=== PATIENT | female | born 1980 | race Caucasian/White ===

== ENCOUNTER → 2018-05-30 | Outpatient (CLI) | payer OTHER ==
[2018-05-30] VITALS (18 sets, daily range): BP systolic 111–142; BP diastolic 75–92
[~2018-05-30] MED LIST: AMITRIPTYLINE H25 M2 PO; AUGMENTIN 875875 M1 PO; BACLOFEN 10MG T10 MG PO; BUSPIRONE HCL10 MG PO; BUTALB-APAP-CA1 EACH PO; CYMBALTA60 MG PO; EFFEXOR XR150 MG PO; HORIZANT600 MG PO; HYDROCODONE-AP1 EAC6 PO; IBUPROFEN 600600 M1 PO; LEVAQUIN 500 M500 M2 PO; LYRICA 50 MG50 MG; MEDROLDOSEPACK PO; Magic Mouthwash PO; NORCO 10-325 T1 EACH PO; ONDANSETRON HCL4 M2 PO; OXYMORPHONE HC7.5 MG PO; PRAVACHOL20 MG PO; PROTONIX40 M1 PO; PROZAC20 MG PO; ROBAXIN 750 MG750 M1 PO; TOPAMAX 100 MG100 MG PO; TOPAMAX50 MG PO; TREXIMET 85-501 EACH PO; VENLAFAXIN75 MG/1 T2 PO; ZANAFLEX4 MG PO; ZOFRAN4 MG PO; ZOLOFT25 MG PO; [UNRECOGNIZED DRUG - OTHER] MC
--- NOTE | 2018-05-31 13:13 | TST ---
[place] [address] TREADMILL STRESS TEST Name: DANNI NOLAN Room: [facility]#: [id number] Admission: 05/30/18 Attend Phys: Aubrey Valentin MD Discharge: Date of : 78 Date of Service: 05/30/18 1235 Report #: [id number] THIS REPORT FOR: //name// CC: Aubrey Valentin MD DATE OF SERVICE: 05/30/2018 Tilt table test was performed on the patient with tilting and subsequent administration of nitrates. Resting blood pressure is 123/75 with a heart rate of 79. The patient was tilted without significant change in systemic pressure, heart rate or symptomatic status. She was subsequently given nitroglycerin sublingually. While the patient was in the tilted position, blood pressure did not change significantly with the lowest value noted being 115/82. There was no inappropriate decrease in heart rate, no inappropriate decrease in blood pressure as noted above, and no symptoms of lightheadedness, dizziness, or syncope. At the end of the test, blood pressure was 118/81 with a pulse rate of 98. IMPRESSION: 1. Negative tilt table test for provocation of hypotension, inappropriate bradycardia, lightheadedness, dizziness, or syncope. 2. After nitrate provocation, there was no significant change in blood pressure, heart rate or symptomatic status. <ELECTRONICALLY SIGNED> By: Luis Stahl MD, FACC 05/31/18 1313 1235 0412 Luis Stahl MD, [facility] /nt
== END | disposition home or self-care (01) ==
LOC: M.CL 10:30
DX: R55 Syncope and collapse (principal); G43.909 Migraine, unspecified, not intractable, without status migrainosus; M25.50 Pain in unspecified joint; Z88.8 Allergy status to other drugs, medicaments and biological substances; Z79.899 Other long term (current) drug therapy; Z79.891 Long term (current) use of opiate analgesic

== ENCOUNTER 2018-06-12 18:25 | Observation (INO) | payer OTHER ==
[~2018-06-12] VITALS: Ht 172.7 cm; Wt 89.8 kg
[~2018-06-12 18:25] MED LIST changes: -PROZAC20 MG PO
[2018-06-12 18:29] VITALS: BP 179/111
[2018-06-12 19:18] LABS: ABSOLUTE BASOPHILS 0.1 thou/uL (0.0-0.2); ABSOLUTE EOSINOPHILS 0.3 thou/uL (0.0-0.7); ABSOLUTE LYMPHOCYTES 4.4 thou/uL (0.8-5.3); ABSOLUTE MONOCYTES 1.1 thou/uL (0.0-1.2); ABSOLUTE NEUTROPHILS 7.4 thou/uL (1.6-8.1); BASOPHILS 0.6 %; EOSINOPHILS 2.2 %; HEMATOCRIT 39.7 % (37.0-47.0); LYMPHOCYTES 33.1 %; MCH 27.8 pg (26.0-34.0); MCHC 32.9 g/dL (28.0-37.0); MCV 84.5 fL (80.0-100.0); MONOCYTES 8.5 %; MPV 6.8 fl. (7.2-11.1); NUCLEATED RBCS 0 /100WBC; PLATELET COUNT* 439 thou/uL (150-400); POLYS 55.6 %; RDW-CV 14.5 % (10.5-14.5); WBC 13.3 thou/uL (4.0-11.0)
[2018-06-12 19:21] LABS: ANION GAP 10 mmol/L (7-16); BUN 9 mg/dL (7-18); CALCIUM 9.6 mg/dL (8.5-10.1); CHLORIDE 104 mmol/L (98-107); CO2 22 mmol/L (21-32); CREATININE 0.8 mg/dL (0.6-1.3); GLUCOSE 103 mg/dL (70-99); POTASSIUM 3.4 mmol/L (3.5-5.1); SODIUM 136 mmol/L (136-145)
[2018-06-12 19:28] LABS: ALBUMIN 4.2 g/dL (3.4-5.0); ALKALINE PHOSPHATASE 68 U/L (46-116); LIPASE 209 U/L (73-393); SGOT 17 U/L (15-37); SGPT 30 U/L (30-65); TOTAL BILIRUBIN 0.3 mg/dL (<0.1-1.0); TOTAL PROTEIN 8.6 g/dL (6.4-8.2)
[2018-06-12 19:43] LABS: TROPONIN-I LEVEL <0.06 ng/mL (<0.06)
[2018-06-12 20:40] LABS: URINE BILIRUBIN NEGATIVE (Negative); URINE BLOOD NEGATIVE (Negative); URINE CLARITY CLEAR; URINE COLOR YELLOW; URINE GLUCOSE-RANDOM NEGATIVE (Negative); URINE KETONES NEGATIVE (Negative); URINE LEUKOCYTES NEGATIVE (Negative); URINE NITRITE NEGATIVE (Negative); URINE PROTEIN NEGATIVE (Negative); URINE SPECIFIC GRAVITY 1.015 (1.005-1.030); URINE UROBILINOGEN 0.2 E.U./dl (0.2-1.0)
[2018-06-12 20:49] LABS: AMP/METHAMP Negative (Negative); BARBITURATES Negative (Negative); BENZODIAZEPINES Negative (Negative); COCAINE Negative (Negative); METHADONE Negative (Negative); OPIATES Negative (Negative); PCP Negative (Negative); THC Negative (Negative)
[2018-06-12 22:14] VITALS: BP 122/83
[2018-06-12] MEDS ORDERED: PROZAC20 MG PO (22:36)
[2018-06-12 22:39] VITALS: BP 99/62
[2018-06-13] VITALS: BP 107/63
[2018-06-13 04:00] VITALS: BP 127/84
--- NOTE | 2018-06-13 05:23 | NUR ---
ASSUMED PT CRAE AT 2230, PT IS A&OX4, TRACING NSR/ST ON THE MONITOR, ON RA. PT STATES SHE FEELS WEAK AND DIZZY AND IS HAVING TROUBLE WALKING. PT IS NPO MFOR PENDING CARDOLOGY CONSULT. PT STATES SHE THINKS HER B12 IS LOW. ADMISSION COMPLETED CHARTED. BED IN LOW POSITION, CALL LIGHT IN REACH, BED ALARM ON, YELLOW ARM BAND AND SOCKS IN PLACE. HOURLY ROUDING COMPLETED FOR PT SAFETY.
--- NOTE | 2018-06-13 05:28 | NUR ---
ASSUMED PT CARE AT 1930, PT IS A&OX4, PT IS TRACING NSR ON THE MONITOR, ON 2L NC SATTING MID TO HIGH 90'S. PT C/O PAION, PRN PAIN MEDICATIONS GIVEN PER MAR BED IN LOW POSITION, CALL LIGHT IN REACH, BED ALARM ON, YELLOW ARM BAND AND SOCKS IN PLACE, HOURLY ROUNDING COMPLETED FOR PT SAFETY.
[2018-06-13 08:10] VITALS: BP 136/92
--- NOTE | 2018-06-13 11:49 | NUR ---
Pt was out of room when CM went to assess, will f/u later
[2018-06-13 14:00] VITALS: BP 144/86
--- NOTE | 2018-06-13 15:40 | 2DMMODE ---
[place] [address] 2 D/M-MODE ECHOCARDIOGRAM Name: DANNI NOLAN Room: [address] Anand#: [id number] Admission: 06/12/18 Attend Phys: Anny Soto, Discharge: Date of : 78 Date of Service: 06/13/18 1539 Report #: [id number] THIS REPORT FOR: //name// APPROVED REPORT Study performed: 06/13/2018 14:00:09 EXAM: Comprehensive 2D, Doppler, and color-flow Echocardiogram Patient Location: In-Patient Room #: Formerly named [facility] Status: routine BSA: 2.03 HR: 76 bpm BP: 136/92 mmHg Rhythm: NSR Other Information Study Quality: Good Indications Chest Pain 2D Dimensions IVSd: 11.47 (7-11mm) LVOT Diam: 24.04 (18-24mm) LVDd: 44.68 mm PWd: 10.44 (7-11mm) Ascending Ao: 27.41 (22-36mm) LVDs: 30.83 (25-40mm) Aortic Root: 29.15 mm Volumes Left Atrial Volume (Systole) LA ESV Index: 25.70 mL/m2 Aortic Valve AoV Peak Sotero.: 1.31 m/s AO Peak Gr.: 6.84 mmHg LVOT Max P.96 mmHg AO Mean Gr.: 3.80 mmHg LVOT Mean P.60 mmHg LVOT Max V: 0.99 m/s AO V2 VTI: 25.86 cm LVOT Mean V: 0.57 m/s DEE (VTI): 3.21 cm2 LVOT V1 VTI: 18.30 cm Mitral Valve E/A Ratio: 1.21 MV Decel. Time: 203.05 ms MV E Max Sotero.: 0.77 m/[place] [address] 2 D/M-MODE ECHOCARDIOGRAM Name: DANNI NOLAN [address] [id number] Admission: 06/12/18 Attend Phys: Anny Soto, Discharge: Date of : 78 Date of Service: 06/13/18 1539 Report #: [id number] MV PHT: 58.88 ms MVA (PHT): 3.74 cm2 TDI E/Lateral E': 6.42 E/Medial E': 7.00 Medial E' Sotero.: 0.11 m/s Lateral E' Sotero.: 0.12 m/s Pulmonary Valve PV Peak Sotero.: 0.94 m/s PV Peak Gr.: 3.50 mmHg Left Ventricle The left ventricle is normal size. There is normal LV segmental wall motion. There is normal left ventricular wall thickness. Left ventricular systolic function is normal. LVEF is 60-65%. The left ventricular diastolic function is normal. Right Ventricle The right ventricle is normal size. The right ventricular systolic function is normal. Atria The left atrium size is normal. The right atrium size is normal. Aortic Valve The aortic valve is normal in structure. No aortic regurgitation is present. There is no aortic valvular stenosis. Mitral Valve The mitral valve is normal in structure. Trace mitral regurgitation. No evidence of mitral valve stenosis. Tricuspid Valve The tricuspid valve is normal in structure. Trace tricuspid regurgitation. Pulmonic Valve The pulmonary valve is normal in structure. Trace pulmonic regurgitation. Great Vessels The aortic root is normal in size. IVC is normal in size and collapses >50% with inspiration[place] [address] 2 D/M-MODE ECHOCARDIOGRAM Name: DANNI NOLAN [address]#: [id number] Admission: 06/12/18 Attend Phys: Anny Soto, Discharge: Date of : 78 Date of Service: 06/13/18 1539 Report #: [id number] There is no pericardial effusion. <Conclusion> The left ventricle is normal size. There is normal left ventricular wall thickness. Left ventricular systolic function is normal. LVEF is 60-65%. The left ventricular diastolic function is normal. Trace mitral regurgitation. Trace tricuspid regurgitation. IVC is normal in size and collapses >50% with inspiration. <ELECTRONICALLY SIGNED> By: Fernandez Rivera MD, FACC 06/13/18 1539 153 153 Fernandez Rivera MD, FACC /INF
--- NOTE | 2018-06-13 15:56 | CARDNUC ---
[place] [address] CARDIAC NUCLEAR IMAGING REPORT Name: DANNI NOLAN [address] [id number] Admission: 06/12/18 Attend Phys: Anny Soto, Discharge: Date of : 78 Date of Service: 06/13/18 1556 Report #: [id number] THIS REPORT FOR: //name// APPROVED REPORT Study performed: 06/13/2018 08:54:00 Indication: Chest pain, dizzy Patient Location: In-Patient Room #: 206 Stress Tech: Anika Aldana Stress Nurse: Johanny Harvey RN Ht: 5 ft 8 in Wt: 197 lbs BSA: 2.03 m2 BMI: 29.95 Medical History Medical History: hyperlipidemia Medications: aspirin 325 Allergies: tramadol, theophylline Cardiac Risk Factors: hyperlipidemia Previous Cardiac Procedures: none Exercise History: Physically active Resting Data Rest SPECT myocardial perfusion imaging was performed in supine position 30 minutes following the intravenous injection of 9.0 mCi of Tc-99m Sestamibi. Time of rest injection: 10:05 The images were gated to evaluate regional wall motion and calculate left ventricular ejection fraction. Administration Route: IV Administration Site: Right AC Pharmacologic Stress Pharmacologic stress test was performed by injecting Regadenoson 0.4 mg IV push over 10-15 seconds immediately followed by the intravenous injection of 31.8 mCi of Tc-99m Sestamibi. Time of stress injection: 11:35 Administration Route: IV Administration Site: Right AC Heart Rate at time of stress injection: 128 bpm. Gated Stress SPECT was performed 80 minutes after stress injection. The images were gated to evaluate regional [place] [address] CARDIAC NUCLEAR IMAGING REPORT Name: DANNI NOLAN Paul Room: [address]#: [id number] Admission: 06/12/18 Attend Phys: Anny Soto, Discharge: Date of : 78 Date of Service: 06/13/18 1556 Report #: [id number] left ventricular ejection fraction. Prone imaging was performed. Stress Test Details Stress Test: Pharmacologic stress testing performed using 0.4 mg of regadenoson per 5 mL given IV over 10 seconds. Reason for pharmacologic stress test: physical limitation. HR Max Heart Rate (APMHR): 181 bpm Resting HR: 102 bpm Target HR (85% APMHR): 153 bpm Max HR Achieved: 128 bpm % of APMHR: 70 Recovery HR: 105 bpm BP Resting BP: 127/90 mmHg Recovery BP: 145/84 mmHg ECG Resting ECG: Sinus Rhythm Stress ECG: Sinus Rhythm ST Change: None Arrhythmia: None Recovery ECG: Sinus Rhythm Recovery ST Change: None Recovery Arrhythmia: None Clinical Reason for Termination: Completed protocol Exercise duration: 0 min sec Exercise capacity: 1 METs The patient had no significant symptoms with Lexiscan infusion. Nurse Comments pt generalized weakness Stress ECG Conclusion The baseline 12-lead EKG shows sinus rhythm without significant ST or T wave abnormality. EKGs obtained during and post Lexiscan stress show sinus rhythm with no significant ST or T wave changes when compared to baseline. There were no stress-induced arrhythmias. Study Quality Study: [place] [address] CARDIAC NUCLEAR IMAGING REPORT Name: DANNI NOLAN [address] [id number] Admission: 06/12/18 Attend Phys: Anny Soto, Discharge: Date of : 78 Date of Service: 06/13/18 1556 Report #: [id number] Artifact: No artifact Study Data At rest, the left ventricular ejection fraction was 70%.. Post stress, the left ventricular ejection was 64%.. TID = 1.10. Perfusion Normal left ventricular perfusion. Wall Motion Normal left ventricular wall motion. Nuclear Conclusion ECG Findings: negative for ischemia Clinical Findings: negative for ischemia Nuclear Findings: negative for ischemia Exercise Capacity: not assessed Left Ventricular Function: normal Risk Study: low Myocardial perfusion images show no defect to suggest infarct or ischemia. Left ventricular systolic function is normal on gated studies. This is a low risk study. <Conclusion> The baseline 12-lead EKG shows sinus rhythm without significant ST or T wave abnormality. EKGs obtained during and post Lexiscan stress show sinus rhythm with no significant ST or T wave changes when compared to baseline. There were no stress-induced arrhythmias. <ELECTRONICALLY SIGNED> By: Fernandez Rivera MD, FACC 06/13/18 1556 1556 1556 Fernandez Rivera MD, FACC /INF
[2018-06-13 17:12] VITALS: BP 144/86
[2018-06-13 17:19] VITALS: BP 144/86
--- NOTE | 2018-06-13 18:03 | EKG ---
[place] [address] ELECTROCARDIOGRAM REPORT Name: DANNI NOLAN Room: [address]#: [id number] Admission: 06/12/18 Attend Phys: Anny Soto MD Discharge: 06/13/18 Date of : 78 Report #: [id number] THIS REPORT FOR: //name// [facility] ED Test Date: 2018-06-12 Test Time: 19:02:42 Pat Name: DANNI NOLAN Department: Room: [facility] Gender: F Appeals Writer: ANALIA : 1980 Requested By: Cathi Zambrano Order Number: [id number] MD: Herb Dejesus Measurements Intervals [place] Rate: 95 P: 63 MI: 139 QRS: 24 QRSD: 101 T: 30 QT: 358 QTc: 450 Interpretive Statements Sinus rhythm Baseline wander in lead(s) V2 No previous ECG available for comparison Electronically Signed On 06-13-2018 18:03:26 CDT by Herb Dejesus [email or web address] <ELECTRONICALLY SIGNED> By: Herb Dejesus MD, FAC 06/13/18 1803 01 01 Herb Dejesus MD, [facility] /EPI
== END 2018-06-13 17:47 | disposition home or self-care (01) ==
LOC: M.ERS 18:25 → M.TBA-ER 21:33 → M.2W 21:33
PROVIDERS: Nurse Practitioner Family; ADMIT Internal Medicine
DX: R07.89 Other chest pain (principal); G89.4 Chronic pain syndrome; I16.0 Hypertensive urgency; D51.0 Vitamin B12 deficiency anemia due to intrinsic factor deficiency; E78.5 Hyperlipidemia, unspecified; G43.909 Migraine, unspecified, not intractable, without status migrainosus; A69.20 Lyme disease, unspecified; Z87.39 Personal history of other diseases of the musculoskeletal system and connective tissue; Z90.49 Acquired absence of other specified parts of digestive tract; Z23 Encounter for immunization

== ENCOUNTER 2018-09-05 22:18 | Emergency (ER) | payer OTHER ==
[~2018-09-05] VITALS: Ht 172.7 cm; Wt 93.0 kg
[~2018-09-05 22:18] MED LIST changes: +PROZAC20 MG PO
[2018-09-05 22:30] VITALS: BP 124/71
== END 2018-09-05 23:00 | disposition home or self-care (01) ==
LOC: M.ERS 22:18
DX: S93.492A Sprain of other ligament of left ankle, initial encounter (principal); G43.909 Migraine, unspecified, not intractable, without status migrainosus; G89.29 Other chronic pain; Z88.6 Allergy status to analgesic agent; Z90.710 Acquired absence of both cervix and uterus; Z90.49 Acquired absence of other specified parts of digestive tract; Z88.8 Allergy status to other drugs, medicaments and biological substances; W00.1XXA Fall from stairs and steps due to ice and snow, initial encounter; Y92.009 Unspecified place in unspecified non-institutional (private) residence as the place of occurrence of the external cause; Y93.89 Activity, other specified; Y99.8 Other external cause status

== ENCOUNTER 2020-08-03 20:53 | Emergency (ER) | payer OTHER ==
[~2020-08-03] VITALS: Ht 175.3 cm; Wt 77.1 kg
[2020-08-03 22:09] LABS: INFLUENZA A ANTIGEN Negative (Negative); INFLUENZA B ANTIGEN Negative (Negative)
[2020-08-03 22:35] LABS: ABSOLUTE MONOCYTES 0.8 thou/uL (0.0-1.2); ABSOLUTE NEUTROPHILS 7.1 thou/uL (1.6-8.1); BASOPHILS 0.4 %; EOSINOPHILS 0.2 %; HEMATOCRIT 34.6 % (37.0-47.0); HEMOGLOBIN 11.6 gm/dL (12.0-15.0); LYMPHOCYTES 27.4 %; MCH 30.1 pg (26.0-34.0); MCHC 33.5 g/dL (28.0-37.0); MCV 89.8 fL (80.0-100.0); MPV 6.2 fl. (7.2-11.1); NUCLEATED RBCS 0 /100WBC; PLATELET COUNT* 459 thou/uL (150-400); RBC 3.85 mil/uL (4.20-5.00); RDW-CV 14.7 % (10.5-14.5); WBC 10.9 thou/uL (4.0-11.0)
[2020-08-03 22:47] LABS: CALCIUM 9.2 mg/dL (8.5-10.1); CREATININE 0.6 mg/dL (0.6-1.3)
[2020-08-03 22:48] LABS: APTT 24.5 Seconds (25.0-31.3); PROTIME 10.5 Seconds (9.20-11.50)
[2020-08-03 22:51] LABS: ALBUMIN 3.7 g/dL (3.4-5.0); TOTAL BILIRUBIN 0.3 mg/dL (<0.1-1.0); TOTAL PROTEIN 7.1 g/dL (6.4-8.2)
[2020-08-03 23:46] LABS: ESR (SEDRATE) 9 mm/hr (0-20)
[2020-08-04 01:10] LABS: URINE BILIRUBIN NEGATIVE (Negative); URINE BLOOD NEGATIVE (Negative); URINE CLARITY CLEAR; URINE COLOR YELLOW; URINE GLUCOSE-RANDOM NEGATIVE (Negative); URINE KETONES NEGATIVE (Negative); URINE LEUKOCYTES-REFLEX NEGATIVE (Negative); URINE PROTEIN NEGATIVE (Negative); URINE SPECIFIC GRAVITY 1.015 (1.005-1.030); URINE UROBILINOGEN 0.2 E.U./dl (0.2-1.0)
[2020-08-04 01:25] LABS: URINE NITRITE-REFLEX POSITIVE (Negative)
[2020-08-04 01:27] LABS: BACTERIA-REFLEX >30 Many /HPF (None Seen); CASTS None Seen /LPF (None Seen); CRYSTALS None Seen /LPF (None Seen); MUCUS 4-6 Moderate strn/LPF (None Seen); SQUAMOUS 4-10 Moderate /LPF (0-3); TRANSITIONAL EPITHEL CELL 0-3 Few /LPF (None Seen); URINE RBC 3-10 Few /HPF (0-2); URINE WBC-REFLEX 6-15 Few /HPF (0-5)
[2020-08-04 03:19] VITALS: BP 172/99
--- NOTE | 2020-08-04 10:06 | EKG ---
[place] [address] ELECTROCARDIOGRAM REPORT Name: DANNI NOLAN Room: [facility]#: [id number] Admission: 08/03/20 Attend Phys: Discharge: 08/04/20 Date of : 78 Date of Service: 08/03/202227 Report #: [id number] THIS REPORT FOR: //name// [facility] ED Test Date: 2020-08-03 Test Time: 22:28:25 Pat Name: DANNI NOLAN Department: Room: Gender: F Client Finance Analyst: : 1980 Requested By: Cathi Zambrano Order Number: [id number] MD: Herb Dejesus Measurements Intervals [place] Rate: 74 P: 58 MS: 158 QRS: 31 QRSD: 99 T: 37 QT: 404 QTc: 449 Interpretive Statements Sinus rhythm Baseline wander in lead(s) V5 Compared to ECG 06/12/2018 19:02:42 No significant changes Electronically Signed On 08-04-2020 10:06:10 CHIROPRACTIC NEUROLOGIST by Herb Dejesus [email or web address] <ELECTRONICALLY SIGNED> By: Herb Dejesus MD, [facility] 08/04/20 1006 Herb Dejesus MD, [facility] /EPI
--- NOTE | 2020-08-04 10:06 | EKG ---
[place] [address] ELECTROCARDIOGRAM REPORT Name: DANNI NOLAN Room: [facility]#: [id number] Admission: 08/03/20 Attend Phys: Discharge: 08/04/20 Date of : 78 Date of Service: 08/03/202308 Report #: [id number] THIS REPORT FOR: //name// [facility] ED Test Date: 2020-08-03 Test Time: 23:09:20 Pat Name: DANNI NOLAN Department: Room: Gender: F Cardiac Cath Rn: : 1980 Requested By: Nayana Rocha Order Number: [id number] MD: Herb Dejesus Measurements Intervals [place] Rate: 65 P: 18 TN: 153 QRS: 37 QRSD: 92 T: 40 QT: 430 QTc: 448 Interpretive Statements Sinus rhythm Baseline wander in lead(s) I,II,aVR,V4,V6 Compared to ECG 08/03/2020 22:28:25 No significant changes Electronically Signed On 08-04-2020 10:06:45 ORDER PACKER OR PACKAGER by Herb Dejesus [email or web address] <ELECTRONICALLY SIGNED> By: Herb Dejesus MD, FACC 08/04/20 1006 Herb Dejesus MD, [facility] /EPI
== END 2020-08-04 03:20 | disposition home or self-care (01) ==
LOC: M.ERS 20:53
PROVIDERS: Nurse Practitioner Family
DX: G43.909 Migraine, unspecified, not intractable, without status migrainosus (principal); Z20.828 Contact with and (suspected) exposure to other viral communicable diseases; G89.29 Other chronic pain; Z90.710 Acquired absence of both cervix and uterus; Z90.49 Acquired absence of other specified parts of digestive tract; Z86.2 Personal history of diseases of the blood and blood-forming organs and certain disorders involving the immune mechanism; Z91.040 Latex allergy status; Z88.6 Allergy status to analgesic agent

== ENCOUNTER 2020-10-31 23:42 | Emergency (ER) | payer OTHER ==
[~2020-10-31] VITALS: Ht 175.3 cm; Wt 72.6 kg
[2020-10-31] MEDS ORDERED: COZAAR 25 MG TA25 M1 PO (23:52)
[2020-10-31] MEDS ORDERED: TRAZODONE HCL100 MG PO (23:53)
[2020-10-31] MEDS ORDERED: AMANTADINE 100100 MG PO (23:57)
[2020-10-31] MEDS ORDERED: CYANOCOBALAMIN (23:57)
[2020-11-01 00:39] LABS: ABSOLUTE LYMPHOCYTES 3.6 thou/uL (0.8-5.3); ABSOLUTE MONOCYTES 0.7 thou/uL (0.0-1.2); ABSOLUTE NEUTROPHILS 6.1 thou/uL (1.6-8.1); BASOPHILS 0.4 %; EOSINOPHILS 0.3 %; HEMATOCRIT 39.8 % (37.0-47.0); HEMOGLOBIN 13.2 gm/dL (12.0-15.0); LYMPHOCYTES 34.2 %; MCH 29.1 pg (26.0-34.0); MCHC 33.1 g/dL (28.0-37.0); MCV 87.9 fL (80.0-100.0); MONOCYTES 6.7 %; MPV 6.6 fl. (7.2-11.1); NUCLEATED RBCS 0 /100WBC; PLATELET COUNT* 337 thou/uL (150-400); POLYS 58.4 %; RBC 4.52 mil/uL (4.20-5.00); RDW-CV 12.9 % (10.5-14.5); WBC 10.5 thou/uL (4.0-11.0)
[2020-11-01 00:49] LABS: CALCIUM 9.1 mg/dL (8.5-10.1); CREATININE 0.8 mg/dL (0.6-1.3)
[2020-11-01 00:54] LABS: ALBUMIN 3.7 g/dL (3.4-5.0); TOTAL BILIRUBIN 0.3 mg/dL (<0.1-1.0)
[2020-11-01 01:10] LABS: POTASSIUM 2.7 mmol/L (3.5-5.1)
[2020-11-01] MEDS ORDERED: POTASSIUM20 PO (03:36)
[2020-11-01 03:56] VITALS: BP 158/97
--- NOTE | 2020-11-01 09:32 | EKG ---
[place] [address] ELECTROCARDIOGRAM REPORT Name: DANNI NOLAN Room: [facility]#: [id number] Admission: 10/31/20 Attend Phys: Discharge: 11/01/20 Date of : 78 Date of Service: 10/31/20 2347 Report #: [id number] THIS REPORT FOR: //name// [facility] ED Test Date: 2020-10-31 Test Time: 23:47:06 Pat Name: DANNI NOLAN Department: Room: Gender: F Hydrator: GUME : 1980 Requested By: Nayana Rocha Order Number: [id number] MD: Fernandez Rivera Measurements Intervals [place] Rate: 58 P: 44 [place]: 150 QRS: 37 QRSD: 106 T: 47 QT: 426 QTc: 419 Interpretive Statements Sinus rhythm RSR' in V1 or V2, probably normal variant Baseline wander in lead(s) V5 Compared to ECG 08/03/2020 23:09:20 RSR' in V1 or V2 now present Electronically Signed On 11-01-2020 9:31:59 LEAD ADVISOR by Fernandez Rivera [email or web address] <ELECTRONICALLY SIGNED> By: Fernandez Rivera MD, FACC 11/01/20 0931 2347 2347 Fernandez Rivera MD, FACC /EPI
== END 2020-11-01 03:57 | disposition home or self-care (01) ==
LOC: M.ERS 23:42
PROVIDERS: Emergency Medicine
DX: I10 Essential (primary) hypertension (principal); E87.6 Hypokalemia; M62.838 Other muscle spasm; R11.2 Nausea with vomiting, unspecified; G43.909 Migraine, unspecified, not intractable, without status migrainosus; Z90.711 Acquired absence of uterus with remaining cervical stump; Z90.49 Acquired absence of other specified parts of digestive tract; Z79.899 Other long term (current) drug therapy; Z91.040 Latex allergy status; Z88.8 Allergy status to other drugs, medicaments and biological substances

== ENCOUNTER 2020-11-05 15:56 | Emergency (ER) | payer OTHER ==
[~2020-11-05] VITALS: Ht 175.3 cm; Wt 72.6 kg
[~2020-11-05 15:56] MED LIST changes: +AMANTADINE 100100 MG PO; +COZAAR 25 MG TA25 M1 PO; +CYANOCOBALAMIN; +POTASSIUM20 PO; +TRAZODONE HCL100 MG PO
[2020-11-05 16:15] LABS: ABSOLUTE BASOPHILS 0.2 thou/uL (0.0-0.2); ABSOLUTE MONOCYTES 0.4 thou/uL (0.0-1.2); ABSOLUTE NEUTROPHILS 10.6 thou/uL (1.6-8.1); BASOPHILS 1.4 %; HEMATOCRIT 41.7 % (37.0-47.0); LYMPHOCYTES 15.3 %; MCH 29.7 pg (26.0-34.0); MCHC 33.6 g/dL (28.0-37.0); MCV 88.1 fL (80.0-100.0); MONOCYTES 2.9 %; MPV 6.6 fl. (7.2-11.1); NUCLEATED RBCS 0 /100WBC; PLATELET COUNT* 365 thou/uL (150-400); POLYS 80.4 %; RBC 4.73 mil/uL (4.20-5.00); RDW-CV 12.8 % (10.5-14.5); WBC 13.2 thou/uL (4.0-11.0)
[2020-11-05 16:26] LABS: CALCIUM 10.1 mg/dL (8.5-10.1); CREATININE 0.7 mg/dL (0.6-1.3); POTASSIUM 3.3 mmol/L (3.5-5.1)
[2020-11-05 16:30] LABS: ALBUMIN 4.3 g/dL (3.4-5.0); TOTAL BILIRUBIN 0.3 mg/dL (<0.1-1.0); TOTAL PROTEIN 8.1 g/dL (6.4-8.2)
[2020-11-05 17:31] VITALS: BP 145/65
== END 2020-11-05 17:32 | disposition home or self-care (01) ==
LOC: M.ERS 15:56
PROVIDERS: Family Medicine
DX: R11.2 Nausea with vomiting, unspecified (principal); G43.909 Migraine, unspecified, not intractable, without status migrainosus; F17.210 Nicotine dependence, cigarettes, uncomplicated; Z91.040 Latex allergy status; Z88.6 Allergy status to analgesic agent; Z88.8 Allergy status to other drugs, medicaments and biological substances; Z90.710 Acquired absence of both cervix and uterus; Z90.49 Acquired absence of other specified parts of digestive tract; G89.29 Other chronic pain; Z86.2 Personal history of diseases of the blood and blood-forming organs and certain disorders involving the immune mechanism